=== PATIENT | male | born 1985 | race African-American/Black ===

== ENCOUNTER 2020-01-23 00:24 | Emergency (ER) | payer MEDICAID ==
--- NOTE | 2020-01-23 01:23 | Emergency Department Report ---
HPI - General Chief Complaint: Psych Time Seen by Provider: 01/23/20 00:45 - HPI HPI: This is a 34-year-old male who presents to the emergency department for what appears to be a mental health evaluation. Patient was brought in by the Police Department after he apparently had some aggressive behavior towards the caregiver and other residents at a transitional home in which he lives. The patient does not speak any Bulgarian. I attempted to communicate with the patient using his [place] language, Iranian Mandarin, using the language line but the patient refuses to talk to me. ED Past Medical Hx - Past Medical History Previous Medical History?: Yes Hx Hypertension: No Hx CVA: No Hx Heart Attack/AMI: No Hx Congestive Heart Failure: No Hx Diabetes: Yes Hx Deep Vein Thrombosis: No Hx Pulmonary Embolism: No Hx GERD: No Hx Liver Disease: No Hx Renal Disease: No Hx Sickle Cell Disease: No Hx Arthritis: No Hx Headaches / Migraines: No Hx Seizures: No Hx Kidney Stones: No Hx Psychiatric Treatment: Yes (Schizophrenia, paranoia) Hx Asthma: No Hx COPD: No Hx Tuberculosis: No Hx Dementia: No Hx HIV: No Additional medical history: unknown - Surgical History Past Surgical History?: No Hx Coronary Stent: No Hx Open Heart Surgery: No Hx Pacemaker: No Hx Internal Defibrillator: No Hx Cholecystectomy: No Hx Appendectomy: No Hx Breast Surgery: No Additional Surgical History: unknown - Social History Smoking Status: Never Smoker Substance Use Type: None - Medications Home Medications: Home Medications Medication Instructions Recorded Confirmed Last Taken Type AtorvaSTATin [Lipitor] 10 mg PO QHS 01/23/20 01/23/20 Unknown History Cholecalciferol Vit D3 [Vitamin D3 1,000 unit PO QDAY 01/23/20 01/23/20 Unknown History 1,000 UNIT TAB] Divalproex Dr [DepaKOTE DR] 500 mg PO BID 01/23/20 01/23/20 Unknown History diphenhydrAMINE [Benadryl CAP] 50 mg PO BID 01/23/20 01/23/20 Unknown History metFORMIN [Glucophage] 500 mg PO BID 01/23/20 01/23/20 Unknown History risperiDONE [RisperDAL] 4 mg PO BID 01/23/20 01/23/20 Unknown History ED Review of Systems ROS: Stated complaint: MH Other details as noted in HPI Comment: Unobtainable due to pts medical conditions Physical Exam - Physical Exam Vital Signs: Vital Signs 01/23/20 00:35 Temperature 98.3 F Pulse Rate 109 H Respiratory 18 Rate Blood Pressure 109/79 [Left] O2 Sat by Pulse 96 Oximetry Physical Exam: GENERAL: The patient is well-developed well-nourished. HENT: Normocephalic. Atraumatic. Patient has moist mucous membranes. EYES: Extraocular motions are intact. NECK: Supple. Trachea is midline. CHEST/LUNGS: Clear to auscultation. There is no respiratory distress noted. HEART/CARDIOVASCULAR: Regular. There is no tachycardia. There is no murmur. ABDOMEN: Abdomen is soft, nontender. Patient has normal bowel sounds. There is no abdominal distention. SKIN: Skin is warm and dry. NEURO: The patient is awake but is not cooperative. MUSCULOSKELETAL: There is no tenderness or deformity. ED Course Vital Signs 01/23/20 00:35 Temperature 98.3 F Pulse Rate 109 H Respiratory 18 Rate Blood Pressure 109/79 [Left] O2 Sat by Pulse 96 Oximetry ED Medical Decision Making - Lab Data Result diagrams: 01/23/20 01:23 01/23/20 01:23 - Medical Decision Making This patient presents from his transitional housing after displaying some aggressive behavior towards the welfare case worker and other residents. Patient speaks Iranian Mandarin, but despite using the language line, the patient is refusing to talk to the shoe turner or myself. While the patient is not cooperative, he has not displayed any aggressive or violent behavior while in the emergency dep artment thus far. His labs thus far have been unremarkable including CBC, metabolic panel, blood alcohol level and urinalysis. His vital signs have been reassuring including being afebrile. The patient will be seen by the psychiatric team later today for further disposition. Critical Care Time: No Critical care attestation.: If time is entered above; I have spent that time in minutes in the direct care of this critically ill patient, excluding procedure time. ED Disposition Clinical Impression: Medical clearance for psychiatric admission, Aggressive behavior of adult Disposition: DC-01 TO HOME OR SELFCARE Is pt being admited?: No Condition: Stable Additional Instructions: Professional and Agency Contacts To help Resolve Crises(26/10) [place] Crisis Line: Suicide Prevention Line: Crisis Text Line: Text START to 779439 Emergency: 911 Outpatient COMMUNITY Behavioral Health Resources: DEKALB: [facility] [address], [place] [address] NANNETTE: [facility] - [address] [place] [address] Wednesday thru Wednesday - 8am - 5pm BESSY: [facility] Address: [address] [place] [address] Wednesday thru Wednesday- 7am-2pm [facility] Address: [address] [place] [address] Wednesday thru Wednesday: 8:30AM-5PM Referrals: PRIMARY CARE, [Primary Care Provider] - 3-5 Days Time of Disposition: 05:57
[2020-01-23 01:34] LABS: Basophils # (Auto) 0.1 K/mm3 (0.0-0.1); Basophils % (Auto) 0.7 % (0.0-1.8); Eosinophils # (Auto) 0.7 K/mm3 (0.0-0.4); Hematocrit 36.6 % (35.5-45.6); Hemoglobin 12.7 gm/dl (11.8-15.2); Lymphocytes # (Auto) 2.4 K/mm3 (1.2-5.4); Lymphocytes % (Auto) 26.9 % (13.4-35.0); Mean Corpuscular HGB Conc 35 % (32-34); Mean Corpuscular Volume 87 fl (84-94); Monocytes % (Auto) 11.8 % (0.0-7.3); Platelet Count 179 K/mm3 (140-440); Red Cell Distribution Width 14.6 % (13.2-15.2)
[2020-01-23 01:52] LABS: BUN/Creatinine Ratio 15; Blood Urea Nitrogen 16 mg/dL (9-20); Calcium 8.9 mg/dL (8.4-10.2); Hemolysis Index 7
[2020-01-23 05:39] LABS: Bilirubin,Urine NEG (Negative); Blood,Urine NEG (Negative); Color,Urine Straw (Yellow); Protein,Urine <15 mg/dL mg/dL (Negative); Urobilinogen,Urine < 2.0 mg/dL (<2.0)
[2020-01-23 05:43] LABS: Amphetamine Screen,Urine PRESUMPTIVE NEGATIVE; Benzodiazepines Screen,Urine PRESUMPTIVE NEGATIVE; Cannabinoid Screen,Urine PRESUMPTIVE NEGATIVE; Cocaine Screen,Urine PRESUMPTIVE NEGATIVE; Methadone Screen,Urine PRESUMPTIVE NEGATIVE; Opiate Screen,Urine PRESUMPTIVE NEGATIVE
--- NOTE | 2020-01-24 11:46 | Consultation ---
History of Present Illness - Reason for Consult Consult date: 01/24/20 Reason for consult: MHE Requesting physician: YARELY BRISENO - History of Present Psychiatric Illness Per History: This is a 34-year-old male who presents to the emergency department for what appears to be a mental health evaluation. Patient was brought in by [facility] [employer] after he apparently had some aggressive behavior towards the caregiver and other residents at a transitional home in which he lives. The patient does not speak any Vietnamese. I attempted to communicate with the patient using his [place] language, Citizen [place] Mandarin, using the language line but the patient refuses to talk to me. Per MHA: Pt is a 34 y/o male who presents to the ED for a MHE with c/o of aggression and psychosis. Per triage note, Pt came in escorted by police booking officer due to aggressive behavior towards his caregiver and other patient in the transition home where he lives. Rohan lee ax, educational interpreter, Quin [phone], utilized as pt speaks Mandarin. Pt. continued to mumble thoughout the ax and difficult for educational interpreter to understand pts speech. Snagger indicated that pt. continued to talk to himself. Pt had difficulty answering questions asked. His thought process appeared illogical and focused on inventions, a telephone number for the country. When asked about the conflict in the prison pt indicated that when they are angry they send me here. When asked if he was exhibiting auditory hallucination he Reports having 124 brothers in his brotherhood. Contacted pts caregiver, Tamika Leija [phone], and she stated that pt discharged from [facility] approximately 2 weeks ago. Since being in the home, pt has been physically aggressive and talking to himself. Intentionally throwing shoes at others, difficult to redirect, trying to fight, and bumping everyone shoulders. Pt begins to be violent when hes told no or redirected. Reports pacing, refusing to shower, disrobing himself and showing penis to household members. Reports decrease in sleep. No changes to appetite reported. Compliant with medications. PSYCH HPI Patient is a 34-year-old male with unspecified past medical history which include cognitive impairment currently resides in a transitional living facility was brought to the ED due to increasing agitated behavior and physical aggression. Attempt was made 3 times to use the language translating service to speak with patient educational interpreter reported that patient is mumbling words but she could only hear the patient stated he would like to go back to where he came from PAST PSYCHIATRIC HISTORY Diagnoses: Unspecified psychiatric history Suicide attempts or Self-harm behavior: Unknown Prior psychiatric hospitalizations: Was recently admitted to [facility] Substance Abuse history: Unknown Previous psychiatric medications tried: Yes Outpatient treatment: As an upcoming outpatient visit with a psychiatrist PAST MEDICAL HISTORY: Unknown Family Psychiatric History: None reported or documented SOCIAL HISTORY Marital Status: Single Living Arrangements: Transitional home Employment Status: Unemployed Access to guns/weapons: None known Education: Unknown History of Abuse: Unknown Legal History: Unknown REVIEW OF SYSTEMS ROS cannot be reliably obtained from the patient due to current mental status MENTAL STATUS EXAMINATION General Appearance and Behavior: Age appropriate, good hygiene,wearing appropriate clothes, good eye contact, cooperative Cooperation: Participating/engaged Psychomotor Behavior: Psychomotor retarded Mood: n/a Affect and affective range: flat Thought Process:llogical, Thought Content: Illogical, Speech:mumbling Intellectual Functioning: fair Suicidal Ideation: n/a Homicidal Ideation: n/a Impulse Control: Impaired Insight and Judgment: Limited insight and judgment Memory: impaired Attention: Divided attention impaired Orientation: Alert, Treatment Plan Assessment and Plan - Psychiatric problem (1) Aggressive behavior of adult Current Visit: Yes Status: Acute Unable to communicate with the patient, patient has displayed no aggressive behavior, patient was recently admitted to [facility] facility and has an upcoming outpatient appointment. Will recommend outpatient follow-up with a psychiatrist who is well-known to the patient for medication management MEDICATIONS: Risks, benefits and alternatives of medications discussed with the patient, questions answered and consent obtained from patient. PSYCHOTHERAPY: Supportive psychotherapy provided MEDICAL: Per primary team DELIRIUM PRECAUTIONS: Please re-orient patient frequently, keep lights on during the day, and minimize benzodiazepines and opiates as these medications could worsen patient's confusion. NURSE OB: DISPOSITION: Do Not Recommend acute inpatient psychiatric hospitalization at t his time. Outpt follow up with psychiatrist LEGAL STATUS: 1013 rescinded FOLLOW-UP: Will sign off Thank you for the consult. Please contact with any questions and/or concerns. Medications and Allergies Allergies Allergy/AdvReac Type Severity Reaction Status Date / Time No Known Allergies Allergy Verified 09/05/13 15:55 Home Medications Medication Instructions Recorded Confirmed Last Taken Type AtorvaSTATin [Lipitor] 10 mg PO QHS 01/23/20 01/23/20 Unknown History Cholecalciferol Vit D3 [Vitamin D3 1,000 unit PO QDAY 01/23/20 01/23/20 Unknown History 1,000 UNIT TAB] Divalproex Dr [Bereket MALONE] 500 mg PO BID 01/23/20 01/23/20 Unknown History diphenhydrAMINE [Benadryl CAP] 50 mg PO BID 01/23/20 01/23/20 Unknown History metFORMIN [Glucophage] 500 mg PO BID 01/23/20 01/23/20 Unknown History risperiDONE [RisperDAL] 4 mg PO BID 01/23/20 01/23/20 Unknown History Mental Status Exam - Vital signs Last Vital Signs Temp 98.3 F 01/24/20 09:02 Pulse 89 01/24/20 09:02 Resp 18 01/24/20 09:02 BP 108/56 01/24/20 09:02 Pulse Ox 97 01/24/20 09:02 Results Result Diagrams: 01/23/20 01:23 01/23/20 01:23 All other labs normal. Assessment and Plan - Psychiatric problem (1) Aggressive behavior of adult Current Visit: Yes Status: Acute
[2020-02-02 10:56] VITALS: BP 118/71
== END 2020-02-02 16:44 | disposition home or self-care (01) ==
LOC: ED 00:24 → EEVIPCON 00:24 → ED 02-02 16:44
DX: R46.2 Strange and inexplicable behavior (principal); F20.89 Other schizophrenia; F22 Delusional disorders; E11.9 Type 2 diabetes mellitus without complications
CPT/HCPCS: 36415; 80048; 80307; 80320; 81001; 85025; G0480